=== PATIENT | female | born 1960 | race Two or more races ===

== ENCOUNTER → 2016-04-18 | Outpatient (CLI) | payer OTHER ==
--- NOTE | 2016-04-18 16:32 | RADRPT ---
PROCEDURE: Left knee radiographs. CLINICAL INDICATION: Left knee pain. TECHNIQUE: Four views. Weight bearing. Frontal, lateral, oblique, and patellar view. COMPARISON: No prior studies are available for comparison. FINDINGS: There is no fracture or dislocation. There is diffuse osteopenia. There are degenerative changes with osteophytes arising from all 3 joint compartment margins. There is medial joint compartment narrowing, subarticular sclerosis, and deformity. There is no lytic or blastic lesion. There is no radiopaque foreign body. IMPRESSION: 1. Diffuse osteopenia. 2. Severe degenerative changes of the left knee, predominately involving the medial joint compartme nt. RPTAT: QQ .Javier De Dios MD, MD Date Time Electronically viewed and signed by .Javier De Dios MD, MD on 04/18/2016 16:31 .R/
== END | disposition home or self-care (01) ==
LOC: HKI 14:52
PROVIDERS: ATTEND Orthopaedic Surgery
DX: M17.12 Unilateral primary osteoarthritis, left knee (principal); M21.162 Varus deformity, not elsewhere classified, left knee; I10 Essential (primary) hypertension; E11.9 Type 2 diabetes mellitus without complications
CPT/HCPCS: 73564; Z7500; G0463

== ENCOUNTER 2016-05-11 08:13 | Day surgery (SDC) | payer OTHER ==
[~2016-05-11] VITALS: Ht 162.6 cm; Wt 99.1 kg
[2016-05-11 09:07] VITALS: Ht 162.6 cm; Wt 99.1 kg
[2016-05-11] MEDS ORDERED: LISI2.5T59 PO (09:48)
[2016-05-11] MEDS ORDERED: pain med (09:48)
[2016-05-11] MEDS ORDERED: METF500T4 PO (09:48)
[2016-05-11] MEDS ORDERED: PROPOFOL 40 ML ONE (09:54)
[2016-05-11 09:55] VITALS: BP 148/68; PULSE 89; RESP 20
[2016-05-11] MEDS ORDERED: FENTAnyl 50 MCG/ML VIAL ONE (09:55)
[2016-05-11] MEDS ORDERED: MIDAZOLAM 1 MG/ML 2 ML INJ ONE (09:55)
[2016-05-11 10:57] VITALS: BP 99/48; PULSE 68; RESP 10
--- NOTE | 2016-05-11 18:30 | GILP ---
DATE OF PROCEDURE: 05/11/2016 NAME OF PROCEDURE: Colonoscopy. SURGEON: Josefina Gant MD PREOPERATIVE DIAGNOSIS: Screening colonoscopy. POSTOPERATIVE DIAGNOSES: 1. Colonoscopy all the way to the cecum. 2. Internal hemorrhoids. 3. No colon neoplasm was identified. INDICATION FOR THE PROCEDURE: Ms. Kimberlee Conklin is a 55-year-old female patient who was scheduled for screening colonoscopy. The procedure and possible complications were well explained to the patient. The patient understood and consented to the procedure. DESCRIPTION OF PROCEDURE: Under the influence of anesthesia, the colonoscope was carefully introduc ed in the rectum and under direct vision, it was advanced all the way to the cecum. FINDINGS: The patient had internal hemorrhoids. No colon neoplasm was identified. She tolerated the procedure very well and there was no complication from the procedure. At the end of the procedure, she was awake with stable vital signs and she was discharged home to the care of h er family. IMPRESSION: 1. Colonoscopy all the way to the cecum. 2. Internal hemorrhoids. 3. No colon neoplasm was identified. PLAN: Next screening colonoscopy in 10 years. Dictated By: JOSEFINA CHO/ELBA Conf#: [id number] DID#: [id number] CC: JOSEFINA GANT MD;*EndCC*
== END 2016-05-11 14:28 | disposition home or self-care (01) ==
LOC: GIL 08:13
PROVIDERS: ATTEND Internal Medicine Gastroenterology
DX: Z12.11 Encounter for screening for malignant neoplasm of colon (principal); K64.8 Other hemorrhoids; I10 Essential (primary) hypertension; K21.9 Gastro-esophageal reflux disease without esophagitis; E11.8 Type 2 diabetes mellitus with unspecified complications
CPT/HCPCS: 45378; 82962; J2250; J3010; Z7610

== ENCOUNTER → 2016-07-06 | Outpatient (CLI) | payer OTHER ==
[~2016-07-06] MED LIST: HYDR12.58 PO; LISI2.5T59 PO; LISI20TA11 PO; METF500T4 PO; pain med
--- NOTE | 2016-07-06 15:57 | RADRPT ---
PROCEDURE: Limited x-ray of both lower extremities. CLINICAL INDICATION: Bilateral leg pain. TECHNIQUE: Single frontal view of both lower extremities was obtained from the hips to the calves. COMPARISON: None. FINDINGS: The hips are not well seen due to overlying soft tissues. There are severe degenerative changes of both knees with osteophytes, joint space narrowing, and deformity. There is an old healed fracture of the distal right femur. IMPRESSION: 1. Severe degenerative changes of both knees. 2. Old healed fracture of the distal right femur. RPTAT: QQ .Javier De Dios MD, MD Date Time Electronically viewed and signed by .Javier De Dios MD, MD on 07/06/2016 15:57 .R/
== END | disposition home or self-care (01) ==
LOC: HKI 09:37
PROVIDERS: ATTEND Orthopaedic Surgery
DX: M25.562 Pain in left knee (principal); M17.12 Unilateral primary osteoarthritis, left knee; I10 Essential (primary) hypertension; E11.9 Type 2 diabetes mellitus without complications
CPT/HCPCS: 77073; G0463

== ENCOUNTER 2016-07-12 11:42 | Inpatient (IN) | payer OTHER ==
[2016-07-06 12:45] VITALS: BMI 37.8
[2016-07-12] VITALS (31 sets, daily range): BP systolic 112–145; BP diastolic 51–74; PULSE 80–96; RESP 15–27; Ht 162.6 cm; Wt 99.0 kg
[~2016-07-12] VITALS: Ht 162.6 cm; Wt 99.0 kg
[~2016-07-12 11:42] MED LIST changes: +ETOMIDATE 20 MG INJ ONE; +LIDOCAINE 2% (SDV) 5 ML INJ ONE; -LISI2.5T59 PO
[2016-07-12] MEDS: traMADol 50 MG TAB PO SCH ×4 (12:00→23:50)
[2016-07-12] MEDS ORDERED: traMADOL 50 MG TAB X 1 DOSE PO ONE (13:00)
[2016-07-12] MEDS: LACTATED RINGER'S 1,000 ML IV SCH ×4 (13:00→23:44)
[2016-07-12] MEDS ORDERED: CEFAZOLIN 2GM/50 ML (PMX) 50 ML X1 BEFORE INCISION IVPB ONE (13:00)
[2016-07-12] MEDS ORDERED: CELECOXIB 400 MG PO X1 DOSE PO ONE (13:00)
[2016-07-12] MEDS ORDERED: oxyCODONE (CR) 10 MG TAB [oxyCONTIN] X1 DOSE PO ONE (13:00)
[2016-07-12] MEDS ORDERED: TRANEXAMIC ACID 1,000 MG in SOD CHLORIDE 0.9% 90 ML IV ONE (13:00)
[2016-07-12] MEDS ORDERED: PREGABALIN 300 MG PO X1 PO ONE (13:00)
[2016-07-12] MEDS ORDERED: POLYMYXIN B 500000 UNIT INJ ONE (13:32)
[2016-07-12] MEDS ORDERED: SODIUM CL BACTERIOSTATIC 30 ML INJ ONE (13:32)
[2016-07-12] MEDS ORDERED: VANCOMYCIN 1 GM INJ ONE (13:32)
[2016-07-12] MEDS ORDERED: BACITRACIN 50000 UNITS INJ ONE (13:47)
[2016-07-12] MEDS ORDERED: ROCURONIUM 50 MG INJ ONE (13:53)
[2016-07-12] MEDS ORDERED: NEOSTIGMINE 3 MG/3 ML SYRINGE ONE (13:53)
[2016-07-12] MEDS ORDERED: CEFAZOLIN 1 GM INJ ONE ×2 (13:53→15:11)
[2016-07-12] MEDS ORDERED: GLYCOPYRROLATE 0.4 MG INJ ONE (13:53)
[2016-07-12] MEDS ORDERED: PROPOFOL 0 ML ONE (13:53)
[2016-07-12] MEDS ORDERED: DEXAMETHASONE 4 MG/ML 1 ML INJ ONE (13:54)
[2016-07-12] MEDS ORDERED: MIDAZOLAM 1 MG/ML 2 ML INJ ONE (13:54)
[2016-07-12] MEDS ORDERED: FENTAnyl 50 MCG/ML VIAL ONE (13:54)
[2016-07-12] MEDS ORDERED: ONDANSETRON 4 MG INJ ONE (13:54)
[2016-07-12] MEDS ORDERED: PROPOFOL 100 ML ONE ×2 (13:55→15:11)
[2016-07-12] MEDS ORDERED: KETOROLAC 30 MG INJ ONE (14:05)
[2016-07-12] MEDS ORDERED: PAIN COCKTAIL-CEFUROXIME IRR ONE ×7 (14:30)
[2016-07-12] MEDS ORDERED: EXPAREL NOTE (BUPIVICAINE LIPOSOMAL) XX SCH (14:30)
[2016-07-12] MEDS ORDERED: BUPIVACAINE LIPOSOME/PF 266 MG/20 ML VIAL INFIL ONE (14:30)
[2016-07-12] MEDS ORDERED: TRANEXAMIC ACID 1,000 MG in SOD CHLORIDE 0.9% 100 ML IVPB ONE (14:30)
--- NOTE | 2016-07-12 14:30 | HPN ---
Date/Time of Note Date/Time of Note DATE: 07/12/16 TIME: 14:30 Interval H&P Admission Note Pt. seen H&P reviewed: No system changes No change from H&P on 06/30/16 by DIGNA Chase MD Jul 12, 2016 14:30
[2016-07-12] MEDS ORDERED: DIPHENHYDRAMINE 50 MG INJ IV PRN (15:30)
[2016-07-12] MEDS ORDERED: MIDAZOLAM 1 MG/ML 2 ML INJ IV PRN (15:30)
[2016-07-12] MEDS ORDERED: MEPERIDINE 25 MG INJ IV PRN (15:30)
[2016-07-12] MEDS ORDERED: hydrALAzine 20 MG INJ IV PRN (15:30)
[2016-07-12] MEDS ORDERED: LABETALOL HCL 20MG INJ IV PRN (15:30)
[2016-07-12] MEDS ORDERED: EPHEDrine SULFATE 50 MG/5 ML SYG IV PRN (15:30)
[2016-07-12] MEDS ORDERED: FENTAnyl 50 MCG/ML VIAL IV PRN ×3 (15:30)
[2016-07-12] MEDS ORDERED: HYDROmorphONE (0.2 MG/ML) 10ML SYG IV PRN ×3 (15:30)
[2016-07-12] MEDS ORDERED: TRIMETHOBENZAMIDE 100 MG/ML VIAL IM PRN (15:30)
--- NOTE | 2016-07-12 17:26 | PN ---
Date/Time of Note Date/Time of Note DATE: 07/12/16 TIME: 17:24 Assessment/Plan Lines/Catheters IV Catheter Type (from Nrsg): Peripheral IV Assessment/Plan Assessment/Plan Stable in PACU, s/p left TKA -continue abx until drain removed -pain med as needed -ASA/SCDs for DVT prophylaxis -OOB with PT -check AM labs -monitor drain -d/c white in AM XR of the left knee is pending at this time Subjective 24 Hr Interval Summary Stable in PACU. Moving all extremities. Denies pain. Drowsy from anesthesia. Exam/Review of Systems Vital Signs Vitals Vital Signs Date Time Temp Pulse Resp B/P Pulse Ox O2 Delivery O2 Flow Rate FiO2 07/12/16 17:18 98.2 07/12/16 15:04 85 18 132/63 98 Exam Free Text/Dictation Hemovac: Minimal Dressing dry Incision clean, dry, and intact without redness or drainage Thigh soft 5/5 Quadriceps, Tibialis Anterior, EHL, Gastroc, Soleus, Peroneals Normal sensation Palpable DT/PT, CR <2 sec No distal edema ADRIÁN GARCIA PA-C Jul 12, 2016 17:26
[2016-07-12] MEDS ORDERED: oxyCODONE 5 MG TAB PO PRN ×2 (17:30)
[2016-07-12] MEDS ORDERED: ONDANSETRON 4 MG INJ IV PRN (17:30)
[2016-07-12] MEDS ORDERED: BISACODYL 10 MG SUPP PR PRN (17:30)
[2016-07-12] MEDS ORDERED: NACL 0.9% 3 ML SYG IV SCH (17:30)
[2016-07-12] MEDS ORDERED: ASPIRIN (EC) 325 MG TAB PO ONE (17:30)
[2016-07-12] MEDS ORDERED: NA PHOSPHATE/BIPHOS 133 ML ENEMA PR PRN (17:30)
[2016-07-12] MEDS ORDERED: HYDROmorphONE 1 MG/ML SYG IV PRN (17:30)
[2016-07-12] MEDS ORDERED: DIPHENHYDRAMINE 25 MG CAP PO PRN (17:30)
[2016-07-12] MEDS ORDERED: MAGNESIUM HYDROXIDE 30ML CUP PO PRN (17:30)
[2016-07-12 17:38] LABS: HEMATOCRIT 31.4 % (37.0-47.0); HEMOGLOBIN 10.9 g/dl (12.0-16.0)
[2016-07-12] MEDS: CEFAZOLIN 2 GM/50 ML (PMX) 50 ML IVPB SCH (17:46)
[2016-07-12] MEDS: ONDANSETRON 4 MG INJ IV PRN ×2 (17:55→20:06)
[2016-07-12] MEDS: metFORMIN 500 MG TAB PO SCH ×2 (18:00→21:50)
--- NOTE | 2016-07-12 18:02 | OPR ---
DATE OF OPERATION: 07/12/2016 PREOPERATIVE DIAGNOSIS: Left knee osteoarthritis. POSTOPERATIVE DIAGNOSIS: Left knee osteoarthritis. OPERATION PERFORMED: Left total knee arthroplasty. SURGEON: Digna Fry MD CLOTH BEAMER: DIEGO Strong COMPONENTS USED: DePuy Attune size 5 femoral component, size 5 tibial baseplate, 6 mm polyethylene insert and a 35 patellar button. ANESTHESIA: Spinal plus general endotracheal intubation plus periarticular injection. ANESTHESIOLOGIST: Dr. Raymond. TOURNIQUET TIME: 63 minutes. ESTIMATED BLOOD LOSS: 50 mL. INTRAVENOUS FLUIDS: Two liters crystalloid. SPECIMENS: Bone and soft tissue. DRAINS: Hemovac x1. COMPLICATIONS: None. DISPOSITION: Patient tolerated the procedure well and was taken to the recovery room in [facility]. INDICATIONS: The patient is a 55-year-old woman who has had progressive worsening pain in the left knee with radiographic evidence of severe osteoarthritis. She has failed nonsurgical means of treat ment to control her pain including activity modifications, pain medications, intra-articular injecti ons and ambulatory assist devices. Despite these measures, she has had worsening pain and I felt sh e would benefit from a total knee arthroplasty. The risks, benefits, and alternatives of the procedure were explained in detail to the patient. I ex plained the risks of the surgery to include but not be limited to, bleeding and possible need for bl ood transfusion; infection; pain; stiffness; neurovascular injury with possible numbness, weakness, and/or paralysis anywhere from the knee down to the toes; fracture; instability; dislocation; wear a nd/or loosening of the prosthesis and possible need for future revision; blood clots; pulmonary embo lism; and anesthetic complications such as heart attack, stroke, GI bleed, pneumonia, and/or . Ample time was allowed for the patient to ask questions, all of which were addressed and answered. T he patient understood the risks involved and wished to proceed. Informed consent was signed prior to the procedure. PROCEDURE IN DETAIL: The patient's left knee was initialed with a marking pen in the preoperative a puneet to identify the correct operative site. The patient was brought to the operating room and transf erred from the [facility] to the operating table where a spinal anesthetic was administered. Th e patient was then anesthetized and intubated. A Nolen catheter was placed. A timeout was performed to confirm that the left leg was the correct operative site. The patient was given 2 g of Ancef with in one hour prior to the procedure. A tourniquet was placed on the operative proximal thigh. The ope rative knee and lower extremity were prepped and draped in the usual sterile fashion. The operative lower extremity was elevated and exsanguinated with an Esmarch tourniquet. The proximal thigh tourni quet was inflated to 300 mmHg. The knee was flexed. A midline incision was made and carried down through the subcutaneous tissue an d fat with sharp dissection. Limited medial and lateral flaps were raised. A median parapatellar ar throtomy approach was performed. Synovial fluid was normal in color and consistency. The patella was everted and the knee flexed. There were severe tricompartmental osteoarthritic changes noted. A med ial release was performed at the joint line to the midcoronal plane. The ACL and PCL and remnants of the menisci were excised. The stepped drill was used to open up the femoral canal which was irrigat ed and sucked dry. The intramedullary guide otilia was passed up the femur, and the distal cutting bloc k was pinned into place for a 6 degree valgus cut, taking 10 mm of bone off distally. The oscillatin g saw was used to make the cut. The tibia was subluxed anteriorly. The tibial cutoff jig was placed over the center of the talus dis tally and over the junction of the medial and middle third of the tibial tubercle proximally. The gu sukhwinder was pinned into place and the oscillating saw was used to make the cut. The tibia was sized. The extension gap was checked and accommodated a 6 mm spacer block with the knee in full extension. The re was no varus or valgus instability. At this point, the femur was sized with the posterior referencing guide. Two holes were drilled in 3 degrees of external rotation. The two holes were in line with the transepicondylar axis, perpendicu lar to Yee's line, and in line with the tibial cutoff jig brought up with the knee flexed 90 d egrees and tensed with 2 lamina spreaders, suggesting the femoral rotation was correct. The four-in- one cutting block was pinned into place. The anterior and posterior cuts and chamfer cuts were made with the oscillating saw. The flexion gap was checked and accommodated the 6 mm spacer block at 90 d egrees. There was no varus or valgus instability, suggesting the flexion and extension gaps were now equal. The central box was cut out on the femur. The tibia was drilled and punched in proper rotation. Tria l components were placed into position with a trial insert. The patella was cut from 22 mm down to 1 3 mm in size. Three holes were drilled and the trial button placed in position. With all the trials now in place, the knee was taken through range of motion and came to full extension as evidenced by the fact that with the foot on my abdomen and axial loading, there was no tendency for the knee to f ed. The knee was able to be flexed to 125 degrees with good patellar tracking with no lateral tilt or subluxation. At this point, I was satisfied with the overall range of motion, stability, and anderson llar tracking. The trials were removed. The real components were opened. Two bags of cement were mixed, one with an d one without premixed antibiotic. The knee was irrigated with antibiotic saline and sucked dry. Onc e the cement was in a doughy stage, the real components were cemented into place. The knee was held in full extension, and the patellar component was held with a patellar clamp. All excess cement was removed with curettes. As the cement was hardening, the synovial/capsular layer was infiltrated with a mixture of 150 mg of 0.5% Bupivacaine, 8 mg of Duramorph, 300 mcg of epinephrine, 30 mg of Torado l, 100 mcg of clonidine, 750 mg of cefuroxime and 86 mL of normal saline, followed by an injection o f 266 mg of liposomal Bupivacaine. A Hemovac drain was placed in the deep portion of the wound and brought out the anterolateral thigh. Once the cement was completely hardened, the trial liner was removed, and the real insert was opene d. The tourniquet was let down, and there was good hemostasis. The knee was then irrigated with a mi xture of betadine/saline and then antibiotic saline with pulsatile lavage. The real insert was impac franklin into the tibia and reduced onto to the femur. The arthrotomy was closed with a few interrupted #1 Ethibond in a taaowm-sw-dubhx fashion, and then closed in a watertight fashion with a running #2 Stratafix suture. Knee flexion was checked against gravity and came to 125 degrees. The subcutaneous layer was irrigated and closed with 2-0 Statafix, and then 3-0 Statafix and then Prineo Dermabond on the skin. The wound was covered with an occlusive dressing, and secured with cast padding and a bias dressing. The drain was secured with 3-0 nylon. The sponge and needle counts were correct at the end of the case. The patient was then awakened, ext ubated, and taken to the recovery room in stable condition. Dictated By: DIGNA FRY MD EZ/NTS Conf#: [id number] DID#: [id number]
[2016-07-12 18:07] LABS: CALCIUM 9.5 mg/dl (8.4-10.2); CREATININE 0.68 mg/dl (0.44-1.00); POTASSIUM 3.7 mmol/L (3.5-5.1)
--- NOTE | 2016-07-12 18:08 | RADRPT ---
PROCEDURE: XR Left Knee. CLINICAL INDICATION: Left knee pain. Postop. TECHNIQUE: Two views. Frontal and lateral. COMPARISON: 07/06/2016. FINDINGS: There is no fracture or dislocation. Anterior skin paulo and surgical drain are noted. There is a total left knee arthroplasty which appears satisfactory. There is no lytic or blastic lesion. There is no joint effusion. IMPRESSION: 1. Satisfactory postoperative appearance of the left knee. RPTAT: QQ .Javier De Dios MD, MD Date Time Electronically viewed and signed by .Javier De Dios MD, MD on 07/12/2016 18:07 .R/
--- NOTE | 2016-07-12 18:39 | CONS ---
DATE OF ADMISSION: 07/12/2016 DATE OF CONSULTATION: 07/12/2016 PHYSICIAN REQUESTING CONSULT: Dr. Digna Fry REASON FOR CONSULTATION: Medical management Thank you, Dr. Fry, for allowing me to participate in Ms. Kimberlee Conklin's medical management. HISTORY OF PRESENT ILLNESS: Ms. Kimberlee Conklin is a pleasant 55-year-old female with past medical history of diabetes mellitus, hypertension, osteoarthritis who has been complaining of having left k nee pain and after obtaining imaging, it was found the patient does suffer from osteoarthritis of th e left knee. The patient was seen and evaluated by orthopedic surgeon. After obtaining physical th erapy and pain medication, the patient continued to suffer from pain in her knee and failed outpatie nt medical management; therefore, she was evaluated by orthopedic surgeon and after discussing the m ode of the treatment, the patient agreed to proceed with left total knee arthroplasty. After discus sing the benefits of the surgery and signed a consent, the patient was taken to OR today on 07/13/19 17 and under general anesthesia, the patient had a left total knee arthroplasty which patient tolera franklin procedure well. Patient was extubated and was taken to recovery room and medical team was consu lted for further evaluation. At this time, the patient denies any chest pain, shortness of breath, nausea, vomiting, diarrhea. No headache, dizziness, lightheadedness. No change in visual acuity, d iplopia, photophobia. No neck pain, no restricted range of motion in upper and lower extremities. No loss of motor, sensory or any other discomfort. PAST MEDICAL AND SURGICAL HISTORY: 1. Diabetes mellitus. 2. Hypertension. 3. Obesity. 4. Osteoarthritis. MEDICATIONS: 1. Hydrochlorothiazide. 2. Lisinopril. 3. Metformin. ALLERGIES: NO KNOWN DRUG ALLERGIES. FAMILY HISTORY: Positive for hypertension, diabetes mellitus. SOCIAL HISTORY: Negative x3 for smoking, alcohol, illicit drugs. She resides at home with [facility]. She is not dependent on others for daily activity. REVIEW OF SYSTEMS: As above per HPI, otherwise 12 review of systems was found to be negative. PHYSICAL EXAMINATION: VITAL SIGNS: Temperature 98.2, pulse 84, respiration 18, blood pressure 116/____, oxygen 99% in eleno m air. GENERAL APPEARANCE: The patient is lying in bed comfortably without any distress. She is awake, al ert. She is able to follow commands. Body habitus is mildly overweight with a BMI of 37.5. EYES AND ENT: Conjunctivae and lids are normal. Pupils are normal. Extraocular normal. Hearing g rossly normal. Lips are normal. Oral mucosa mildly dry. NECK: Supple. Trachea midline. No lymphadenopathy. RESPIRATORY: Effort is normal. Clear to auscultation bilaterally. CARDIOVASCULAR: Normal S1, S2. Regular rhythm and rate. No murmur, no bruits, no edema. Peripher al pulses, radial pulses palpable. Cap refill is normal. CHEST: Normal expansion of thorax during inspiration. ABDOMEN: Abdominal contour is morbidly obese. Bowel sounds are distant secondary to body habitus. Soft, nontender, not distended, but bowel sounds are present. No guarding, no rebound. GENITOURINARY: There is a Nolen in place. Normal external genitalia. EXTREMITIES: Upper extremities within normal limits. Right lower extremity within normal limits. Left lower extremity is status post total knee arthroplasty. There is a drain in place. Drain is i ntact. Full range of motion bilateral feet. NEUROLOGIC: Cranial nerves II through XII shows grossly intact. She is awake, alert, oriented. LABORATORY WORK AND IMAGING: Glucose 107. Sodium 134, potassium 4.3, chloride 98, bicarbonate 25, BUN 14, creatinine 0.74, GFR 92, ____total cholesterol 260, HDL 56, LDL 171. WBC 8.7, hemoglobin 13 .3, hematocrit 39.2, platelets 323. INR 1.01. PT 11.6 . PTT 31. Urinalysis negative. ASSESSMENT AND PLAN: 1. Left knee osteoarthritis. The patient is status post total knee arthroplasty. Continue pain me dication. Continue postoperative care. The patient has been placed on aspirin for deep vein thromb osis prophylaxis as per orthopedic surgeon. Recommendation physical therapy/occupational therapy ev aluate and treat. 2. Diabetes mellitus. Continue metformin. Place the patient on low carb diet. 3. Essential hypertension, well controlled on medical management. 4. Dyslipidemia. I will follow up patient's lipid panel in a.m. and treat accordingly. 5. For deep venous thrombosis prophylaxis, on aspirin. 6. For gastrointestinal prophylaxis, on proton pump inhibitor. We will continue to monitor patient closely. Further recommendations, management and treatment as p er clinical course. Dictated By: SKIP BOYKIN MD PN/NTS Conf#: [id number] DID#: [id number] CC: DIGNA FRY MD;*EndCC*
[2016-07-12] MEDS: ACETAMINOPHEN 1000MG/100ML IV 100 ML IVPB SCH ×2 (19:10→23:47)
[2016-07-12] MEDS ORDERED: SOD CHLORIDE 0.9% IVPB ONE ×2 (20:30→23:30)
[2016-07-12] MEDS ORDERED: TRANEXAMIC ACID IVPB ONE ×2 (20:30→23:30)
[2016-07-12] MEDS: PREGABALIN 50 MG CAP PO SCH (21:48)
[2016-07-12] MEDS: DOCUSATE SODIUM 100 MG CAP PO SCH (21:48)
[2016-07-12] MEDS: PANTOPRAZOLE (EC) 40 MG TAB PO SCH (21:50)
[2016-07-13 00:45] VITALS: BP 116/59; PULSE 73; RESP 16
[2016-07-13 00:56] VITALS: BP 128/60; RESP 18
[2016-07-13] MEDS: CEFAZOLIN 2 GM/50 ML (PMX) 50 ML IVPB SCH ×2 (02:22→09:18)
[2016-07-13 05:26] LABS: HEMATOCRIT 31.5 % (37.0-47.0); HEMOGLOBIN 10.9 g/dl (12.0-16.0)
[2016-07-13] MEDS: traMADol 50 MG TAB PO SCH ×4 (05:34→23:52)
[2016-07-13] MEDS: PANTOPRAZOLE (EC) 40 MG TAB PO SCH ×2 (05:34→18:12)
[2016-07-13] MEDS: ACETAMINOPHEN 1000MG/100ML IV 100 ML IVPB SCH ×2 (05:34→11:53)
[2016-07-13 06:00] LABS: POTASSIUM 4.4 mmol/L (3.5-5.1)
[2016-07-13 06:02] LABS: CREATININE 0.71 mg/dl (0.44-1.00)
[2016-07-13 06:03] LABS: CALCIUM 9.6 mg/dl (8.4-10.2)
[2016-07-13 06:05] LABS: CHOL/HDL RATIO 3.8 RATIO
[2016-07-13 08:08] VITALS: BP_SYST 108; BP_SYST 129; BP_DIAS 57; BP_DIAS 63; RESP 18
--- NOTE | 2016-07-13 08:42 | PN ---
Date/Time of Note Date/Time of Note DATE: 07/13/16 TIME: 08:40 Assessment/Plan Lines/Catheters IV Catheter Type (from Nrsg): Peripheral IV Nolen in Place (from Nrsg): Yes Assessment/Plan Assessment/Plan Stable POD #1, s/p left TKA -d/c abx -pain meds as needed -ASA/SCDs for DVT prophylaxis -OOB with PT -check AM labs -drain removed -d/c planning. Will plan to go home upon discharge Subjective 24 Hr Interval Summary No acute overnight events. Denies any knee pain but complaining of some nausea from anesthesia and pain medicine. Did not start PT yesterday. VSS, afebrile. Will plan to go home upon discharge. Exam/Review of Systems Vital Signs Vitals Vital Signs Date Time Temp Pulse Resp B/P Pulse Ox O2 Delivery O2 Flow Rate FiO2 07/13/16 08:08 97.6 58 18 108/57 98 07/13/16 00:45 Nasal Cannula 07/12/16 21:00 2.0 Intake and Output 07/12/16 07/12/16 07/13/16 14:59 22:59 06:59 Intake Total 0 ml 100 ml 1625 ml Output Total 540 ml 1180 ml Balance 0 ml -440 ml 445 ml Exam Free Text/Dictation Hemovac: 520cc Dressing dry Incision clean, dry, and intact without redness or drainage Thigh soft 5/5 Quadriceps, Tibialis Anterior, EHL, Gastroc, Soleus, Peroneals Normal sensation Palpable DT/PT, CR <2 sec No distal edema Results Result Diagram: 07/13/16 0448 07/13/16 0448 ADRIÁN GARCIA PA-C Jul 13, 2016 08:42
[2016-07-13] MEDS ORDERED: LISINOPRIL 20 MG TAB PO SCH (09:00)
[2016-07-13] MEDS: LACTATED RINGER'S 1,000 ML IV SCH ×4 (09:00→18:12)
[2016-07-13] MEDS: HYDROCHLOROTHIAZIDE 12.5 MG CAP PO SCH (09:00)
[2016-07-13] MEDS: ASPIRIN (EC) 325 MG TAB PO SCH ×2 (09:17→21:44)
[2016-07-13] MEDS: DOCUSATE SODIUM 100 MG CAP PO SCH ×2 (09:17→21:44)
[2016-07-13] MEDS: PREGABALIN 50 MG CAP PO SCH ×2 (09:17→21:44)
[2016-07-13] MEDS: CELECOXIB 200 MG CAP PO SCH (09:17)
[2016-07-13] MEDS: metFORMIN 500 MG TAB PO SCH ×2 (09:22→18:12)
[2016-07-13 11:36] LABS: ADD UMIC NO; URINE BILIRUBIN (Dip) NEGATIVE (NEGATIVE); URINE BLOOD (Dip) NEGATIVE (NEGATIVE); URINE COLOR LT. YELLOW (YELLOW); URINE GLUCOSE (Dip) NEGATIVE (NEGATIVE); URINE KETONES (Dip) NEGATIVE (NEGATIVE); URINE LEUKOCYTE ESTERASE (Dip) NEGATIVE (NEGATIVE); URINE NITRITE (Dip) NEGATIVE (NEGATIVE); URINE TOTAL PROTEIN (Dip) NEGATIVE (NEGATIVE); URINE UROBILINOGEN (Dip) 0.2 E.U./dL (0.1-1.0)
[2016-07-13] MEDS ORDERED: CEFAZOLIN 2 GM/50 ML (PMX) 50 ML IVPB SCH (14:00)
--- NOTE | 2016-07-13 14:07 | PN ---
Date/Time of Note Date/Time of Note DATE: 07/13/16 TIME: 13:56 Assessment/Plan VTE Prophylaxis VTE Prophylaxis Intervention: other Lines/Catheters IV [facility] ([facility] Peripheral IV Urinary Cath still in place: No Assessment/Plan Chief Complaint/Hosp Course ASSESSMENT AND PLAN: 1. Left knee osteoarthritis. Postop day #1 status post total knee arthroplasty. Continue pain medication. Continue postoperative care. The patient has been placed on aspirin for deep vein thrombosis prophylaxis as per orthopedic surgeon. physical therapy/occupational therapy evaluate and treat. 2. Diabetes mellitus. With hemoglobin A1c of 6.0, increase metformin [address] the patient on low carb diet. 3. Essential hypertension, well controlled on medical management. Parameters on blood pressure 4. Dyslipidemia. LDL of 136 and HDL within normal limits, placed the patient on low-cholesterol diet 5. Anemia. Follow up iron panel 6. For deep venous thrombosis prophylaxis, on aspirin. 7. For gastrointestinal prophylaxis, on proton pump inhibitor. We will continue to monitor patient closely. Further recommendations, management and treatment as per clinical course. Problems: Subjective 24 Hr Interval Summary Free Text/Dictation Patient denies any chest pain or shortness of breath Tolerating oral intake Ambulating with physical therapy 2 this morning Exam/Review of Systems Vital Signs Vitals Vital Signs Date Time Temp Pulse Resp B/P Pulse Ox O2 Delivery O2 Flow Rate FiO2 07/13/16 08:08 97.6 58 18 108/57 98 07/13/16 00:45 Nasal Cannula 07/12/16 21:00 2.0 Intake and Output 07/12/16 07/12/16 07/13/16 15:00 23:00 07:00 Intake Total 0 ml 100 ml 1625 ml Output Total 540 ml 1180 ml Balance 0 ml -440 ml 445 ml Exam General: The patient is moderately overweight, Not in acute distress. HEENT: Atraumatic, normocephalic. The pupils are equal and round . Neck: Supple with full range of motion. Chest: Normal expansion of the thorax during inspiration Lungs: Clear to auscultation bilaterally Heart: Normal S1-S2, Regular rhythm and rate. Abdomen: Soft , nontender, nondistended , bowel sounds are present. Extremities: Left lower extremity surgical site is dry and clean, no edema no cyanosis Neurologic: Normal mental status,The patient is awake, alert and oriented . Results Result Diagram: 07/13/16 0448 07/13/16 0448 Results 24 hrs Laboratory Tests Test 07/12/16 17:25 07/12/16 19:11 07/13/16 04:48 07/13/16 06:00 Hemoglobin 10.9 L 10.9 L Hematocrit 31.4 L 31.5 L Sodium Level 138 136 Potassium Level 3.7 4.4 Chloride Level 104 99 Carbon Dioxide Level 23 25 Anion Gap 15 16 Blood Urea Nitrogen 14 15 Creatinine 0.68 0.71 Glucose Level 183 163 Calcium Level 9.5 9.6 Bedside Glucose 163 Hemoglobin A1c 6.0 H Triglycerides Level 102 Cholesterol Level 211 H LDL Cholesterol, Calculated 136 HDL Cholesterol 55 Cholesterol/HDL Ratio 3.8 Urine Color LT. YELLOW Urine Clarity CLEAR Urine pH 5.5 Urine Specific [place] 1.020 Urine Ketones NEGATIVE Urine Nitrite NEGATIVE Urine Bilirubin NEGATIVE Urine Urobilinogen 0.2 E.U./dL Urine Leukocyte Esterase NEGATIVE Urine Hemoglobin NEGATIVE Urine Glucose NEGATIVE Urine Total Protein NEGATIVE Medications Medications Current Medications Lactated Ringer's (Lr) 1,000 ml @ 100 mls/hr Q10H IV ; Start 07/12/16 at 13:00 Miscellaneous Information 1 ea NOTE XX ; Start 07/12/16 at 14:30; Stop 07/15/16 at 14:29 Hydrochlorothiazide (Hydrochlorothiazide) 12.5 mg DAILY PO ; Start 07/13/16 at 09 :00 Lisinopril 20 mg 20 mg DAILY PO ; Start 07/13/16 at 09:00 Lactated Ringer's (Lr) 1,000 ml @ 125 mls/hr Q8H IV Last administered on 23:44; Admin Dose 125 MLS/HR; Start 07/12/16 at 17:13 Celecoxib 200 mg 200 mg DAILY PO Last administered on 07/13/16 09:17; Admin Dose 200 MG; Start 07/13/16 at 09:00 Acetaminophen (Ofirmev 1000mg/ 100ml Iv) 100 ml @ 400 mls/hr Q6 IVPB Last administered on 07/13/16 11:53; Admin Dose 400 MLS/HR; Start 07/12/16 at 18:00; Stop 07/13/16 at 17:59 Tramadol HCl (Ultram) 50 mg Q6 PO Last administered on 4/5/17at 11:53; Admin Dose 50 MG; Start 07/12/16 at 12:00; Stop 07/15/16 at 11:59 Oxycodone HCl (Roxicodone) 5 mg Q4H PRN PO PAIN LEVEL 1-3; Start 07/12/16 at 17: 30 Oxycodone HCl (Roxicodone) 10 mg Q4H PRN PO PAIN LEVEL 4-7; Start 07/12/16 at 17 :30 Hydromorphone HCl (Dilaudid) 1 mg Q3H PRN IV PAIN LEVEL 8-10; Start 07/12/16 at 17:30 Ondansetron HCl (Zofran Inj) 4 mg Q6H PRN IV NAUSEA AND/OR VOMITING; Start 07/12 at 17:30 Bisacodyl (Dulcolax Supp) 10 mg Q12H PRN LA CONSTIPATION; Start 07/12/16 at 17: 30 Magnesium Hydroxide (Milk Of Mag) 30 ml BID PRN PO CONSTIPATION; Start 07/12/16 at 17:30 Sodium Biphosphate/ Sodium Phosphate (Fleet Enema) 133 ml DAILY PRN LA CONSTIPATION; Start 07/12/16 at 17:30 Docusate Sodium (Colace) 100 mg BID PO Last administered on 07/13/16 09:17; Admin Dose 100 MG; Start 07/12/16 at 21:00 Diphenhydramine HCl (Benadryl) 25 mg Q6H PRN PO PRURITUS; Start 07/12/16 at 17: 30 Aspirin (Ecotrin) 325 mg BID PO Last administered on 07/13/16 09:17; Admin Dose 325 MG; Start 07/13/16 at 09:00 Pantoprazole (Protonix Tab) 40 mg BID@,18 PO Last administered on 07/13/16 05 :34; Admin Dose 40 MG; Start 07/12/16 at 18:00 Pregabalin (Lyrica) 50 mg BID PO Last administered on 07/13/16 09:17; Admin Dose 50 MG; Start 07/12/16 at 21:00 SKIP BOYKIN MD Jul 13, 2016 14:07
[2016-07-13 19:57] VITALS: BP 96/58; RESP 18
[2016-07-14] MEDS: LACTATED RINGER'S 1,000 ML IV SCH ×5 (01:13→15:24)
[2016-07-14 05:46] LABS: HEMATOCRIT 30.6 % (37.0-47.0); HEMOGLOBIN 10.1 g/dl (12.0-16.0)
[2016-07-14 06:04] LABS: CREATININE 0.77 mg/dl (0.44-1.00)
[2016-07-14 06:05] LABS: CALCIUM 9.3 mg/dl (8.4-10.2)
[2016-07-14] MEDS: PANTOPRAZOLE (EC) 40 MG TAB PO SCH ×2 (06:05→18:18)
[2016-07-14] MEDS: traMADol 50 MG TAB PO SCH ×4 (06:05→23:36)
[2016-07-14] MEDS ORDERED: GLUCOSE GEL 15 GRAM TUBE BUCCAL PRN (07:00)
[2016-07-14] MEDS ORDERED: DEXTROSE 50% 50 ML SYRINGE IV PRN ×2 (07:00)
[2016-07-14] MEDS ORDERED: GLUCOSE GEL 15 GRAM TUBE PO PRN ×2 (07:00)
[2016-07-14] MEDS ORDERED: GLUCAGON 1 MG INJ IM PRN (07:00)
[2016-07-14 07:07] LABS: IRON 47 ug/dl (35-150)
[2016-07-14 07:16] LABS: TOTAL IRON BINDING CAPACITY 301 ug/dl (241-421)
[2016-07-14 08:23] VITALS: BP 117/58; RESP 18
[2016-07-14] MEDS: HYDROCHLOROTHIAZIDE 12.5 MG CAP PO SCH (09:06)
[2016-07-14] MEDS: metFORMIN 500 MG TAB PO SCH ×2 (09:06→18:19)
[2016-07-14] MEDS: CELECOXIB 200 MG CAP PO SCH (09:06)
[2016-07-14] MEDS: ASPIRIN (EC) 325 MG TAB PO SCH ×2 (09:06→21:29)
[2016-07-14] MEDS: DOCUSATE SODIUM 100 MG CAP PO SCH ×2 (09:06→21:29)
[2016-07-14] MEDS: PREGABALIN 50 MG CAP PO SCH ×2 (09:06→21:29)
[2016-07-14] MEDS: LISINOPRIL 10 MG TAB PO SCH (09:07)
--- NOTE | 2016-07-14 14:52 | PN ---
Date/Time of Note Date/Time of Note DATE: 07/14/16 TIME: 14:51 Assessment/Plan VTE Prophylaxis VTE Prophylaxis Intervention: other Lines/Catheters IV Catheter Type (from [facility]): Saline Lock Urinary Cath still in place: No Assessment/Plan Chief Complaint/Hosp Course ASSESSMENT AND PLAN: 1. Left knee osteoarthritis. Postop day #2 status post total knee arthroplasty. Continue pain medication. Continue postoperative care. The patient has been placed on aspirin for deep vein thrombosis prophylaxis as per orthopedic surgeon. physical therapy/occupational therapy evaluate and treat. 2. Diabetes mellitus. With hemoglobin A1c of 6.0, increase metformin [address] the patient on low carb diet. 3. Essential hypertension, well controlled on medical management. Parameters on blood pressure 4. Dyslipidemia. LDL of 136 and HDL within normal limits, placed the patient on low-cholesterol diet 5. Anemia. Recommend to be discharged on ferrous sulfate and vitamin C 6. For deep venous thrombosis prophylaxis, on aspirin. 7. For gastrointestinal prophylaxis, on proton pump inhibitor. We will continue to monitor patient closely. Further recommendations, management and treatment as per clinical course. Problems: Subjective 24 Hr Interval Summary Free Text/Dictation Patient denies any chest pain or shortness of breath No abdominal pain Tolerating physical therapy Exam/Review of Systems Vital Signs Vitals Vital Signs Date Time Temp Pulse Resp B/P Pulse Ox O2 Delivery O2 Flow Rate FiO2 07/14/16 08:23 97.8 60 18 117/58 94 07/13/16 00:45 Nasal Cannula 07/12/16 21:00 2.0 Intake and Output 07/13/16 07/13/16 07/14/16 15:00 23:00 07:00 Intake Total 550 ml 1375 ml Output Total 1250 ml 500 ml Balance -700 ml 875 ml Exam General: The patient is moderately overweight, Not in acute distress. HEENT: Atraumatic, normocephalic. The pupils are equal and round . Neck: Supple with full range of motion. Chest: Normal expansion of the thorax during inspiration Lungs: Clear to auscultation bilaterally Heart: Normal S1-S2, Regular rhythm and rate. Abdomen: Soft , nontender, nondistended , bowel sounds are present. Extremities: Left knee surgical site is dry and clean, no edema no cyanosis Neurologic: Normal mental status,The patient is awake, alert and oriented . Results Result Diagram: 07/14/16 0500 07/14/16 0500 Results 24 hrs Laboratory Tests Test 07/14/16 05:00 07/14/16 05:05 Hemoglobin 10.1 L Hematocrit 30.6 L Sodium Level 139 Potassium Level 4.0 Chloride Level 104 Carbon Dioxide Level 26 Anion Gap 13 Blood Urea Nitrogen 15 Creatinine 0.77 Glucose Level 105 # Calcium Level 9.3 Iron Level 47 Total Iron Binding Capacity 301 Percent Iron Saturation 16 L Ferritin 106.0 Medications Medications Current Medications Lactated Ringer's (Lr) 1,000 ml @ 100 mls/hr Q10H IV Last administered on 04:21; Admin Dose 100 MLS/HR; Start 07/12/16 at 13:00 Miscellaneous Information 1 ea NOTE XX ; Start 07/12/16 at 14:30; Stop 07/15/16 at 14:29 Hydrochlorothiazide 12.5 mg 12.5 mg DAILY PO Last administered on 07/14/16 09: 06; Admin Dose 12.5 MG; Start 07/13/16 at 09:00 Lactated Ringer's (Lr) 1,000 ml @ 125 mls/hr Q8H IV Last administered on 23:44; Admin Dose 125 MLS/HR; Start 07/12/16 at 17:13 Celecoxib (Celebrex) 200 mg DAILY PO Last administered on 07/14/16 09:06; Admin Dose 200 MG; Start 07/13/16 at 09:00 Tramadol HCl (Ultram) 50 mg Q6 PO Last administered on 07/14/16 12:12; Admin Dose 50 MG; Start 07/12/16 at 12:00; Stop 07/15/16 at 11:59 Oxycodone HCl (Roxicodone) 5 mg Q4H PRN PO PAIN LEVEL 1-3; Start 07/12/16 at 17: 30 Oxycodone HCl (Roxicodone) 10 mg Q4H PRN PO PAIN LEVEL 4-7; Start 07/12/16 at 17 :30 Hydromorphone HCl (Dilaudid) 1 mg Q3H PRN IV PAIN LEVEL 8-10; Start 07/12/16 at 17:30 Ondansetron HCl (Zofran Inj) 4 mg Q6H PRN IV NAUSEA AND/OR VOMITING; Start 07/12 at 17:30 Bisacodyl (Dulcolax Supp) 10 mg Q12H PRN CO CONSTIPATION; Start 07/12/16 at 17: 30 Magnesium Hydroxide (Milk Of Mag) 30 ml BID PRN PO CONSTIPATION; Start 07/12/16 at 17:30 Sodium Biphosphate/ Sodium Phosphate (Fleet Enema) 133 ml DAILY PRN CO CONSTIPATION; Start 07/12/16 at 17:30 Docusate Sodium (Colace) 100 mg BID PO Last administered on 07/14/16 09:06; Admin Dose 100 MG; Start 07/12/16 at 21:00 Diphenhydramine HCl (Benadryl) 25 mg Q6H PRN PO PRURITUS; Start 07/12/16 at 17: 30 Aspirin (Ecotrin) 325 mg BID PO Last administered on 07/14/16 09:06; Admin Dose 325 MG; Start 07/13/16 at 09:00 Pantoprazole (Protonix Tab) 40 mg BID@,18 PO Last administered on 07/14/16 06 :05; Admin Dose 40 MG; Start 07/12/16 at 18:00 Pregabalin (Lyrica) 50 mg BID PO Last administered on 07/14/16 09:06; Admin Dose 50 MG; Start 07/12/16 at 21:00 Lisinopril (Zestril) 10 mg DAILY PO Last administered on 07/14/16 09:07; Admin Dose 10 MG; Start 07/14/16 at 09:00 Miscellaneous Information 1 ea NOTE XX ; Start 07/14/16 at 07:00 Glucose (Glutose) 15 gm Q15M PRN PO DECREASED GLUCOSE; Start 07/14/16 at 07:00 Glucose (Glutose) 22.5 gm Q15M PRN PO DECREASED GLUCOSE; Start 07/14/16 at 07:00 Dextrose (D50w Syringe) 25 ml Q15M PRN IV DECREASED GLUCOSE; Start 07/14/16 at 07:00 Dextrose (D50w Syringe) 50 ml Q15M PRN IV DECREASED GLUCOSE; Start 07/14/16 at 07:00 Glucagon (Glucagen) 1 mg Q15M PRN IM DECREASED GLUCOSE; Start 07/14/16 at 07:00 Glucose (Glutose) 15 gm Q15M PRN BUCCAL DECREASED GLUCOSE; Start 07/14/16 at 07: 00 SKIP BOYKIN MD Jul 14, 2016 14:52
--- NOTE | 2016-07-14 15:47 | PN ---
Date/Time of Note Date/Time of Note DATE: 07/14/16 TIME: 15:45 Assessment/Plan Lines/Catheters IV Catheter Type (from Nrsg): Saline Lock Nolen in Place (from Nrsg): No Assessment/Plan Assessment/Plan Stable POD #2, s/p left TKA -pain meds as needed -ASA/SCDs for DVT prophylaxis -OOB with PT -check AM labs -dressing changed -plan to discharge home tomorrow Subjective 24 Hr Interval Summary No acute overnight events. Progressing well with PT. Mild pain to her left knee. VSS, afebrile. Will plan to go home tomorrow. Exam/Review of Systems Vital Signs Vitals Vital Signs Date Time Temp Pulse Resp B/P Pulse Ox O2 Delivery O2 Flow Rate FiO2 07/14/16 08:23 97.8 60 18 117/58 94 07/13/16 00:45 Nasal Cannula 07/12/16 21:00 2.0 Intake and Output 07/13/16 07/13/16 07/14/16 15:00 23:00 07:00 Intake Total 550 ml 1375 ml Output Total 1250 ml 500 ml Balance -700 ml 875 ml Exam Free Text/Dictation Dressing dry Incision clean, dry, and intact without redness or drainage Thigh soft 5/5 Quadriceps, Tibialis Anterior, EHL, Gastroc, Soleus, Peroneals Normal sensation Palpable DT/PT, CR <2 sec No distal edema Results Result Diagram: 07/14/16 0500 07/14/16 0500 ADRIÁN GARCIA PA-C Jul 14, 2016 15:47
--- NOTE | 2016-07-14 15:48 | PDOCDIS ---
Discharge Instructions DIAGNOSIS Discharge Diagnosis: s/p left TKA CONDITION Patient Condition: Good HOME CARE INSTRUCTIONS: Diet Instructions: RegularSpecial Diet: Carb controlled ACTIVITY: Activity Restrictions: Slowly Increase Activity Rest between Activity Avoid heavy lifting Do not Drive Do not operate Machinery Do not operate Power Tool Avoid Heavy Housework Keep Limb Elevated Bathing Restrictions: Shower FOLLOW UP/APPOINTMENTS Appointments follow up in the office on 07/22/16 OTHER ORDERS: Other Orders: S/P TKA Physical Therapy: Three times per week at home x 2 weeks Daily in Rehab/SNF WB STATUS: WBAT 1. Strengthening exercises for both upper and un-operated lower extremities. 2. Gait training with front wheeled walker 3. Active range of motion exercises to operative knee. 4. When not working on knee range of motion exercises, distal towel roll under operative ankle/distal calf to promote full extension. 5. DO NOT PUT ANYTHING BEHIND OPERATIVE KNEE!!! 6. Quadriceps and hamstring strengthening. 7. May switch to cane in contra lateral hand 6 weeks after surgery. 8. Physical Therapy can open case if nursing is not available. 9. Use Ice Machine as instructed from date of surgery while at rest 3X/day. 10. Patient requires mobile SCDs to reduce risk of developing DVT following TKA. Patient will use the mobile SCDs for 30 days postoperatively. Bathing assistance by home health aide twice weekly if Medicare patient. Occupational Therapy: Evaluation for assistive devices and ADL training. Wound Care: Keep incision dry & covered with Tegaderm until first visit with Dr. Lucas Anticoagulation Orders: Enteric Coated Aspirin 325 mg po bid x 6 weeks from date of surgery Follow-up:Call for an appointment with Dr. Lucas in 1 week after discharged from hospital at DME Orders: FWW, 3-in-1 Commode, Polar ice machine, Mobile SCDs ADRIÁN GARCIA PA-C Jul 14, 2016 15:48
[2016-07-14] MEDS ORDERED: HYDR-905 PO (15:50)
[2016-07-14] MEDS ORDERED: TRAM50TA2 PO (15:50)
[2016-07-14] MEDS ORDERED: PANT40TA4 PO (15:50)
[2016-07-14] MEDS ORDERED: ASPI325T32 PO (15:50)
[2016-07-14] MEDS ORDERED: PREG50CA PO (15:50)
[2016-07-14 20:31] VITALS: BP 106/53; RESP 20
[2016-07-15] MEDS: LACTATED RINGER'S 1,000 ML IV SCH ×2 (01:00→01:13)
[2016-07-15] MEDS: PANTOPRAZOLE (EC) 40 MG TAB PO SCH (05:29)
[2016-07-15] MEDS: traMADol 50 MG TAB PO SCH (05:29)
[2016-07-15 05:48] LABS: HEMATOCRIT 31.1 % (37.0-47.0); HEMOGLOBIN 10.3 g/dl (12.0-16.0)
[2016-07-15 06:28] LABS: POTASSIUM 3.8 mmol/L (3.5-5.1)
[2016-07-15 06:30] LABS: CREATININE 0.76 mg/dl (0.44-1.00)
[2016-07-15 06:31] LABS: CALCIUM 9.3 mg/dl (8.4-10.2)
[2016-07-15 08:35] VITALS: BP 114/53; RESP 18
[2016-07-15] MEDS: metFORMIN 500 MG TAB PO SCH (08:55)
[2016-07-15] MEDS: DOCUSATE SODIUM 100 MG CAP PO SCH (08:55)
[2016-07-15] MEDS: HYDROCHLOROTHIAZIDE 12.5 MG CAP PO SCH (08:55)
[2016-07-15] MEDS: CELECOXIB 200 MG CAP PO SCH (08:55)
[2016-07-15] MEDS: PREGABALIN 50 MG CAP PO SCH (08:55)
[2016-07-15] MEDS: ASPIRIN (EC) 325 MG TAB PO SCH (08:56)
[2016-07-15] MEDS: LISINOPRIL 10 MG TAB PO SCH (08:56)
--- NOTE | 2016-07-15 08:57 | PN ---
Date/Time of Note Date/Time of Note DATE: 07/15/16 TIME: 08:56 Assessment/Plan Lines/Catheters IV Catheter Type (from Nrsg): Saline Lock Nolen in Place (from Nrsg): No Assessment/Plan Assessment/Plan Stable POD #3, s/p left TKA -pain meds as needed -ASA/SCDs for DVT prophylaxis -OOB with PT -dressing changed -d/c home today -follow up in the office in 1 week Subjective 24 Hr Interval Summary No acute overnight events. Denies significant knee pain. Progressing well with PT. Will plan to go home today. Exam/Review of Systems Vital Signs Vitals Vital Signs Date Time Temp Pulse Resp B/P Pulse Ox O2 Delivery O2 Flow Rate FiO2 07/15/16 08:35 97.8 74 18 114/53 96 07/13/16 00:45 Nasal Cannula 07/12/16 21:00 2.0 Intake and Output 07/14/16 07/14/16 07/15/16 15:00 23:00 07:00 Intake Total 300 ml 1180 ml 800 ml Output Total 1000 ml 900 ml Balance 300 ml 180 ml -100 ml Exam Free Text/Dictation Dressing dry Incision clean, dry, and intact without redness or drainage Thigh soft 5/5 Quadriceps, Tibialis Anterior, EHL, Gastroc, Soleus, Peroneals Normal sensation Palpable DT/PT, CR <2 sec No distal edema Results Result Diagram: 07/15/16 0420 07/15/16 042 ADRIÁN GARCIA PA-C Jul 15, 2016 08:57
--- NOTE | 2016-07-15 12:34 | DS ---
DATE OF ADMISSION: 07/12/2016 DATE OF DISCHARGE: 07/15/2016 CONDITION ON DISCHARGE: Stable ADMITTING DIAGNOSIS: Left knee osteoarthritis. DISCHARGE DIAGNOSIS: Status post left total knee arthroplasty. PROCEDURE PERFORMED: Left total knee arthroplasty. HOSPITAL COURSE: This is a 55-year-old female who was seen in the clinic initially complaining of left knee pain. She had undergone conservative modalities unsuccessfully, and x-rays demonstrated advanced osteoarthritis of the left knee. It was thought at that point she would benefit from a left total knee arthroplasty. On 07/12/2016, the patient was admitted and taken to the operating room where she underwent a left total knee arthroplasty. There were no intraoperative complications. The patient tolerated the procedure well. She was taken to the recovery room in stable condition. Pain was well controlled with oral pain medication. She was started on aspirin and SCDs for DVT prophylaxis. She remained hemodynamically stable and neurovascularly intact throughout her hospital stay. She began physical therapy on postoperative day# 1 and continued to make good progress. She was deemed clinically stable for discharge on postoperative day #3. Prior to discharge, the incision was inspected and noted to be clean, dry and intact. Dressing changes were done prior to the patient going home. LABORATORY ANALYSIS: Hemoglobin 10.3, hematocrit 31.0. Chemistry panel was within normal limits. DISCHARGE MEDICATIONS: 1. [place] 7.5/325 mg 2. Tramadol 50 mg. 3. Lyrica 50 mg. 4. Protonix 40 mg. 5. Aspirin 325 mg. In addition, the patient is to resume all her normal home medications. DISCHARGE INSTRUCTIONS: The patient will be discharged home in stable condition. She is to resume a normal diet. Activity includes weightbearing as tolerated on the left lower extremity. She will begin physical therapy with home health. She will be discharged home on the medication noted above and is to resume all her normal home medications. The patient is to call the office or go to the emergency room for any concerns including increased redness, swelling, drainage or fever or any concerns regarding the operation or site of incision. FOLLOWUP: The patient will need to follow up in the office on 07/22/2016. Dictated By: ADRIÁN KHOURY/ELBA Conf#: [id number] DID#: [id number] JESSICA
--- NOTE | 2016-07-15 16:55 | PN ---
Date/Time of Note Date/Time of Note DATE: 07/15/16 TIME: 10:00 Assessment/Plan VTE Prophylaxis VTE Prophylaxis Intervention: other Lines/Catheters IV Catheter Type (from [facility]): Saline Lock Urinary Cath still in place: No Assessment/Plan Chief Complaint/Hosp Course ASSESSMENT AND PLAN: 1. Left knee osteoarthritis. Postop day #2 status post total knee arthroplasty. Continue pain medication. Continue postoperative care. The patient has been placed on aspirin for deep vein thrombosis prophylaxis as per orthopedic surgeon. physical therapy/occupational therapy evaluate and treat. 2. Diabetes mellitus. With hemoglobin A1c of 6.0, increase metformin [address] the patient on low carb diet. 3. Essential hypertension, well controlled on medical management. Parameters on blood pressure 4. Dyslipidemia. LDL of 136 and HDL within normal limits, placed the patient on low-cholesterol diet 5. Anemia. Recommend to be discharged on ferrous sulfate and vitamin C 6. For deep venous thrombosis prophylaxis, on aspirin. 7. For gastrointestinal prophylaxis, on proton pump inhibitor. Patient is stable for discharge as medical standpoint, follow up with orthopedic surgeon as outpatient Problems: Subjective 24 Hr Interval Summary Free Text/Dictation Denies of any chest pain or shortness of breath Ambulating with minimal discomfort No nausea vomiting diarrhea Exam/Review of Systems Vital Signs Vitals Vital Signs Date Time Temp Pulse Resp B/P Pulse Ox O2 Delivery O2 Flow Rate FiO2 07/15/16 08:35 97.8 74 18 114/53 96 07/13/16 00:45 Nasal Cannula 07/12/16 21:00 2.0 Intake and Output 07/14/16 07/14/16 07/15/16 15:00 23:00 07:00 Intake Total 300 ml 1180 ml 800 ml Output Total 1000 ml 900 ml Balance 300 ml 180 ml -100 ml Exam General: The patient is well-developed, Not in acute distress. HEENT: Atraumatic, normocephalic. The pupils are equal and round . Neck: Supple with full range of motion. Chest: Normal expansion of the thorax during inspiration Lungs: Clear to auscultation bilaterally Heart: Normal S1-S2, Regular rhythm and rate. Abdomen: Soft , nontender, nondistended , bowel sounds are present. Extremities: Normal to inspection, no edema no cyanosis, surgical site is dry and clean Neurologic: Normal mental status,The patient is awake, alert and oriented . Results Result Diagram: 07/15/16 0420 07/15/16 0420 Results 24 hrs Laboratory Tests Test 07/15/16 04:20 Hemoglobin 10.3 L Hematocrit 31.1 L Sodium Level 139 Potassium Level 3.8 Chloride Level 102 Carbon Dioxide Level 28 Anion Gap 13 Blood Urea Nitrogen 15 Creatinine 0.76 Glucose Level 93 Calcium Level 9.3 SKIP BOYKIN MD Jul 15, 2016 16:54
== END 2016-07-15 14:45 | disposition home health service (06) | DRG 470 ==
LOC: REC 11:42 → EDSTATUS 15:00 → MS1 21:05
PROVIDERS: ADMIT Orthopaedic Surgery; ATTEND Orthopaedic Surgery
PROC: 0SRD0J9 Replacement of Left Knee Joint with Synthetic Substitute, Cemented, Open Approach (ICD-10-PCS; principal; 2016-07-12 14:30)
DX: M17.12 Unilateral primary osteoarthritis, left knee (principal); I10 Essential (primary) hypertension; E11.9 Type 2 diabetes mellitus without complications; E78.5 Hyperlipidemia, unspecified; D64.9 Anemia, unspecified; E66.9 Obesity, unspecified; Z79.84 Long term (current) use of oral hypoglycemic drugs; Z68.37 Body mass index [BMI] 37.0-37.9, adult
CPT/HCPCS: 73560; 80048; 80061; 81003; 82728; 82962; 83036; 83540; 85014; 85018; 86850; 86900; 86901; 86920; 87081; 87086; 88304; 88311; 97110; 97116; 97166; 97530; Z7610; C1776; C9290; J0131; J0171; J0690; J0697; J0735; J1100; J1885; J2250; J2274; J2405; J2710; J3010; J3370; J7120

== ENCOUNTER → 2016-07-22 | Outpatient (CLI) | payer OTHER ==
[~2016-07-22] MED LIST changes: +ASPI325T32 PO; -ETOMIDATE 20 MG INJ ONE; +HYDR-905 PO; -LIDOCAINE 2% (SDV) 5 ML INJ ONE; +PANT40TA4 PO; +PREG50CA PO; +TRAM50TA2 PO; -pain med
--- NOTE | 2016-07-22 11:47 | RADRPT ---
PROCEDURE: XR left knee. CLINICAL INDICATION: Knee pain. TECHNIQUE: AP and lateral weightbearing views are available for review. COMPARISON: 07/12/2016 FINDINGS: There is a postoperative total knee replacement. There is no evidence of loosening of the prosthesis . There is no evidence of hardware failure. The osseous structures are normal in mineralization, arc hitecture and alignment No acute fracture or dislocation is seen.No osseous lesions are identified. The soft tissues are unremarkable . there are anterior skin paulo. IMPRESSION: Unremarkable postoperative total knee replacement. RPTAT: HGDB .Godwin Cowan MD, MD Date Time Electronically viewed and signed by .Godwin Cowan MD, on 07/22/2016 11:46 .B/
--- NOTE | 2016-07-22 11:58 | HKNOTE ---
DATE OF SERVICE: 07/22/2016 INTERVAL HISTORY: The patient presents today for her first postoperative evaluation. She is 10 day s status post left total knee arthroplasty. She is doing well overall. She has been evaluated by [facility], but has not begun physical therapy at this point yet. 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 She has been taking aspirin twice daily for DVT prophylaxis as recommended. She denies any fevers or chills. Sh e denies any significant pain. She is ambulating with a front-wheel walker. She presents today for her first postoperative evaluation. PHYSICAL EXAMINATION: Today, she is alert and oriented x4 in no acute distress. She is ambulating with a front-wheel walker. Examination of the incision demonstrates it to be clean, dry and intact. Vicky are in place. No erythema or warmth noted. There is no significant soft tissue swelling. Range of motion is 0 to 75 degrees. Varus and valgus forces are stable. Compartments were soft. Homans sign is negative. She is neurovascularly intact distally. IMAGING: X-rays of the left knee were obtained today and reviewed by me. They demonstrate good danuta tomic alignment with no fractures or dislocation identified. ASSESSMENT: Ten days status post left total knee arthroplasty. PLAN: The vicky were removed today and Steri-Strips were applied. She is to continue aspirin twi ce daily for 6 weeks for DVT prophylaxis. We have encouraged her to begin range of motion exercises to prevent arthrofibrosis, as she does have on the right knee from a previous surgery as well. She has not begun physical therapy with [facility]. We will schedule to come next week. She should b egin gentle range of motion exercises while at home. Additionally, she can ambulate as tolerated. She is to continue pain medicine as needed. We will see her back in 4 weeks for repeat evaluation. Dictated By: ADRIÁN CORTEZ for DIGNA KHOURY/ELBA Conf#: [id number] DID#: [id number]
== END | disposition home or self-care (01) ==
LOC: HKI 09:26
PROVIDERS: ATTEND Orthopaedic Surgery
DX: Z47.1 Aftercare following joint replacement surgery (principal); Z96.652 Presence of left artificial knee joint

== ENCOUNTER → 2016-08-19 | Outpatient (CLI) | END | disposition home or self-care (01) | DX: Z09 Encounter for follow-up examination after completed treatment for conditions other than malignant neoplasm (principal); Z96.652 Presence of left artificial knee joint; I10 Essential (primary) hypertension; E11.9 Type 2 diabetes mellitus without complications ==

== ENCOUNTER → 2016-12-02 | Outpatient (CLI) | payer OTHER ==
[~2016-12-02] MED LIST changes: +LISI2.5T59 PO; +pain med
--- NOTE | 2016-12-02 15:56 | RADRPT ---
PROCEDURE: Left knee radiographs. CLINICAL INDICATION: Left knee pain. Postop. TECHNIQUE: Three views. Weight bearing. Frontal, lateral, and patellar view. COMPARISON: 07/22/2016. FINDINGS: There is no fracture or dislocation. Anterior skin paulo have been removed There is a total left knee arthroplasty which appears satisfactory. There is no lytic or blastic lesion. IMPRESSION: 1. Satisfactory postoperative appearance of the left knee. RPTAT: QQ .Javier De Dios MD, MD Date Time Electronically viewed and signed by .Javier De Dios MD, MD on 12/02/2016 15:55 .R/
== END | disposition home or self-care (01) ==
LOC: HKI 09:28
PROVIDERS: ATTEND Orthopaedic Surgery
DX: M17.12 Unilateral primary osteoarthritis, left knee (principal); Z47.1 Aftercare following joint replacement surgery; Z96.652 Presence of left artificial knee joint
CPT/HCPCS: G0463